=== PATIENT | female | born 1980 | race Caucasian/White ===

== ENCOUNTER → 2018-04-03 08:24 | Outpatient (CLI) | payer BC, SELFPAY ==
--- NOTE | 2018-04-03 09:28 | DI.RAD.S_ITS ---
PROCEDURE: XR FOOT LT MIN 3V INDICATIONS: L foot injury TECHNIQUE: 3 views of the foot were acquired. COMPARISON: None. FINDINGS: Bones: No fractures or dislocations. No suspicious bony lesions. Joint space narrowing with mild sclerosis is noted at the DIP joints of the second, third and fourth toes. Small plantar bone spur os calcis. Soft tissues: No tibiotalar joint effusion. Achilles tendon appears normal. IMPRESSION: With attention to the second and third toes, no fracture or acute bony abnormality seen. There is mild joint degeneration at the second, third, and fourth DIP joints. Dictated by: Aniceto Hector M.D. on 04/03/2018 at 9:48 Approved by: Aniceto Hector M.D. on 04/03/2018 at 9:51
== END ==
PROVIDERS: Visit Provider Physician Assistant
DX: M19.072 Primary osteoarthritis, left ankle and foot (principal); M79.672 Pain in left foot
CPT/HCPCS: 73630

== ENCOUNTER → 2018-12-11 08:16 | Outpatient (CLI) | payer BC, SELFPAY ==
--- NOTE | 2018-12-11 | DI.US.S_ITS ---
ULTRASOUND OF RIGHT BREAST: 12/11/2018 CLINICAL: Palpable right breast lump and focal pain. [facility] and real-time ultrasound of the right breast were performed. Ferrara scale images of the real-time examination were reviewed. There is a benign 2.5 cm x 1.7 cm x 2.5 cm wider than tall oval cyst in the right breast at 10 o'clock posterior depth 3 cm from the nipple. This oval cyst is anechoic with posterior acoustic enhancement. This correlates as palpated and to the reported pain. Color flow imaging demonstrates that there is no vascularity present. IMPRESSION: BENIGN There is no sonographic evidence of malignancy. The 2.5 cm x 1.7 cm x 2.5 cm wider than tall oval cyst in the right breast is consistent with a simple cyst and is benign. Recommend clinical followup for continued symptomatology. Recommend initiating screening mammography at age 40. This exam was interpreted at Station ID: [id number]. Electronically Signed By: Issac Wade M.D. at/:12/11/2018 10:20:06 letter sent: Normal Exam Ultrasound BI-RADS: 2 Benign
--- NOTE | 2018-12-11 08:19 | DI.MG.S_ITS ---
BILATERAL DIGITAL DIAGNOSTIC MAMMOGRAM 3D/2D: 12/11/2018 CLINICAL: Right breast lump with Pain. No prior exams were available for comparison. The tissue of both breasts is extremely dense, which lowers the sensitivity of mammography. There are benign punctate calcifications in both breasts in the anterior depth. No significant masses, calcifications, or other findings are seen in either breast. IMPRESSION: INCOMPLETE: NEEDS ADDITIONAL IMAGING EVALUATION There is no abnormality seen in the right breast to correspond with the area of clinical concern, palpable abnormality, and pain indicated by triangular marker, however, ultrasound is recommended. This exam was interpreted at Station ID: [id number]. NOTE: For mammograms, a report in lay terms will be sent to the patient. Approximately 15% of breast malignancies will not be visualized mammographically. In the management of a palpable breast mass, a negative mammogram must not discourage biopsy of a clinically suspicious lesion. Electronically Signed By: Issac Wade M.D. aty/:12/11/2018 09:58:28 ACR BI-RADS Category 0: Incomplete [id number]
== END ==
PROVIDERS: Visit Provider Specialist
DX: R92.8 Other abnormal and inconclusive findings on diagnostic imaging of breast (principal); N64.4 Mastodynia; N60.01 Solitary cyst of right breast
CPT/HCPCS: 76642; 77066; G0279

== ENCOUNTER 2024-09-15 18:22 | Emergency (ER) | payer BC, SELFPAY ==
[2024-09-15 18:26] VITALS: BP 137/69; PULSE 78; RESP 17; TEMP 36.3; O2SAT 97; BMI 29.4
[2024-09-15] MEDS: TET,DIPH,PERTUSS(ACELL),VAC/PF 0.5 ML SYRINGE IM (19:56)
[2024-09-15] MEDS: ACETAMINOPHEN 325 MG TABLET 975 MG PO (19:56)
--- NOTE | 2024-09-15 20:24 | ED_ITS ---
HPI - Wound/Laceration General Chief Complaint: Wound/Laceration Stated Complaint: finger lac Time Seen by Provider: 09/15/24 19:57 Source: patient Mode of arrival: Ambulatory History of Present Illness HPI narrative: Patient was a 43-year-old female here for evaluation of 2 separate lacerations to the thumb of her left hand. She states she was trying to put a piece of glass back on a light when a broken her hand that she sustained 2 cuts. It was irrigated extensively in triage. Related Data Home Medications Medication Instructions Recorded Confirmed calcium carbonate 600 mg-vitamin cap PO 04/03/18 07/04/23 D3 10 mcg (400 unit) capsule (Calcium 600 with Vitamin D3) multivit,Ca,kor-punh-WQ-guarana-caff tab PO 11/29/18 07/04/23 18 mg iron-400 mcg-180 mg tablet (One-A-Day Women's Active) levonorgestrel-ethinyl estradiol 1 tab PO DAILY 07/04/23 07/04/23 0.1 mg-20 mcg tablet (Lutera (28)) Allergies Allergy/AdvReac Type Severity Reaction Status Date / Time bupropion [From WELLBUTRIN] Allergy Unknown HIVES Verified 09/15/24 18:26 tree nuts Allergy Severe Swelling Uncoded 09/15/24 18:26 of Lip/Tongue/Throat Review of Systems Musculoskeletal Musculoskeletal: Reports system reviewed and no additional complaints, except as documented Integumentary/Breasts Skin/Breast: Reports system reviewed and no additional complaints, except as documented Patient History Medical History PTSD (post-traumatic stress disorder) Depression (~1996) History of bipolar disorder (~1996) Anxiety (~1996) Headache (~2004) Autism Chicken pox (~1988) Family History (Updated 07/19/23 @ 21:20 by Tracee Lares) Mother Age: 66 Cancer Father Hypertension Grandfather Cancer Grandmother Cancer Grandfather Cancer Grandmother Cancer Social History Smoking Status: Former smoker Tobacco: How many years used: 20 alcohol intake: former (quit 2020) substance use type: marijuana Smoking Status: Former smoker Exam Initial Vital Signs Initial Vital Signs: Vital Signs Temperature 97.3 F L 09/15/24 18:26 Pulse Rate 78 09/15/24 18:26 Respiratory Rate 17 09/15/24 18:26 Blood Pressure 137/69 09/15/24 18:26 Pulse Oximetry 97 09/15/24 18:26 Oxygen Delivery Method Room Air 09/15/24 18:26 Skin Other: 1 cm laceration on the distal aspect of the left thumb. It does not involve the nail. Has a 2nd 1.5 cm laceration in between the MCP and IP joint of the left thumb. No active bleeding. Neuro Sensory Exam: no sensory deficits noted Extrem Other: Full range of motion IP joint left thumb Procedures Laceration Repair Laceration 1: Site: hand Side (If applicable): left Size (cm): 1 Description: linear Depth: simple, single layer Skin layer closed with: dermabond Laceration 2: Site: hand Side (If applicable): left Size (cm): 1.5 Description: linear Depth: simple, single layer Skin layer closed with: dermabond Course Orders Ordered: Discontinued Medications Acetaminophen (Acetaminophen 325 Mg Tablet) 975 mg PO NOW ONE Stop: 09/15/24 19:53 Last Admin: 09/15/24 19:56 Dose: 975 mg Documented By: ALLAN Diphtheria/Tetanus/Acell Pertussis (Tet,Diph,Pertuss(Acell),Vac/Pf 0.5 Ml Syringe) 0.5 ml IM .ONCE ONE Stop: 09/15/24 18:33 Last Admin: 09/15/24 19:56 Dose: 0.5 ml Documented By: ALLAN Vital Signs Vital signs: Vital Signs - 8 hr 09/15/24 18:26 Temperature 97.3 F L Pulse Rate 78 Respiratory Rate 17 Blood Pressure 137/69 Pulse Oximetry 97 Oxygen Delivery Method Room Air MDM - Wound/Laceration MDM Narrative Medical decision making narrative: Wounds were explored and irrigated extensively. No deep structure involvement. Wounds were closed with Dermabond. No imaging studies needed. Patient was given return precautions. Discharge Plan Departure Patient Disposition: Home Clinical Impression: Laceration Instructions: DI for Minor Laceration Activity Restrictions/Additional Instructions: You can wash your hands like normal. You can use soap and water. The glue that was placed today should start to come off of the next 5-7 days. Contact your primary care doctor for follow-up as needed. Prescriptions: No Action calcium carbonate-vitamin D3 [Calcium 600 with Vitamin D3] 600 mg(1,500mg) - 400 unit capsule PO levonorgestrel-ethinyl estrad [Lutera (28)] 0.1-20 mg-mcg tablet 1 tab PO DAILY One-A-Day Women's Active 18 mg iron- 400 mcg-180 mg tablet PO Referrals: Krystina Arita MD [Primary Care Provider] - Stand Alone Forms: Patient Portal/API/Survey
== END 2024-09-15 20:44 | disposition home or self-care (01) ==
PROVIDERS: Emergency Provider Emergency Medicine; PCP Student in an Organized Health Care Education/Training Program
DX: S61.012A Laceration without foreign body of left thumb without damage to nail, initial encounter (principal); W25.XXXA Contact with sharp glass, initial encounter; Y93.89 Activity, other specified; Z23 Encounter for immunization
CPT/HCPCS: 12001; 90471; 99283; 99284; 90715